=== PATIENT | male | born 1980 | race Caucasian/White ===

== ENCOUNTER 2023-01-25 21:17 | Emergency (ER) | payer SELFPAY ==
[2023-01-25 21:18] VITALS: BP 140/120; PULSE 117; RESP 15; TEMP 36.5; O2SAT 97; BMI 28.3
--- NOTE | 2023-01-25 22:19 | EX.ED.DYSGE1 ---
HPI History of Present Illness Chief Complaint: Itching Narrative Narrative: 42-year-old male was stung by a bee yesterday on his left ankle. He states he does not have anaphylaxis to bees. He is never had a reaction like this before. Patient states his leg is slowly been swelling. He tried some Benadryl today but it did not really help. He notices a little blister on the back of his left ankle. No systemic signs or symptoms. PFSH PFSH Home Medications NK 01/25/23 [History Last Taken Unknown] prednisone 50 mg tablet 50 mg PO DAILY #2 tabs 01/25/23 [Rx Last Taken Unknown] Allergy/AdvReac Type Severity Reaction Status Date / Time bee venom protein (honey bee) Allergy Mild Rash Verified 01/25/23 21:23 Surgical History History of spinal surgery Social History Smoking Status: Never smoker ROS ROS ED Constitutional Constitutional ED: Denies chills, fever(s) or sweats Eyes Eyes: Denies blurry vision or change in vision ENT ENT ED: Denies ear pain or sore throat Cardiovascular Cardiovascular: Denies chest pain, palpitations or racing heartbeat Respiratory/Chest Respiratory/Chest: Denies cough, dyspnea or sputum Gastrointestinal Gastrointestinal: Denies abdominal pain, constipation, diarrhea, nausea or vomiting Genitourinary Genitourinary ED: Denies dysuria, hematuria or urinary frequency Musculoskeletal Musculoskeletal: Denies arthralgias, myalgias or neck pain Integumentary Reports rash; Denies abscess or Abrasions Neurologic Neurologic: Denies headache(s), paresthesias or weakness Psychiatric Psychiatric: Denies anxiety, depression, suicidal ideation or suicidal thoughts Endocrine Endocrinology: Denies polydipsia or polyuria EXAM Physical Exam Const Vital Signs: 01/25/23 21:18 01/25/23 22:44 Temperature 97.7 F L Temperature Source Temporal Pulse Rate 117 H 97 Respiratory Rate 15 Blood Pressure 140/120 H Blood Pressure Mean 126 Pulse Ox 97 97 Oxygen Delivery Method Room Air Positive well nourished General Appearance ED: NAD HEENT Reports moist mucous membranes Eyes PERRL and EOMs intact bilaterally Neck no lymphadenopathy Chest Wall inspection of chest normal and palpation of chest normal Resp normal respiratory effort and clear to auscultation bilaterally Auscultation: Negative for rales, rhonchi or wheezes Cardio regular rate and regular rhythm Neuro oriented x3 and CN's II-XII intact bilaterally Sensorium / Orientation: alert Motor Exam: strength 5/5 throughout Psych mental status grossly normal Skin Skin Narrative: Erythema and edema noted over the left lateral ankle and somewhat into the left distal calf. No crepitance, significant increased warmth, cellulitic change. There is a small blister which is fluid-filled and the fluid is clear. Its about 1 cm wide. MDM MDM MDM Narrative Medical decision making narrative: Patient having localized reaction to bee sting yesterday. Is been getting worse so I did give him some prednisone. He will continue Benadryl at home. I did recommend he elevate the leg and use ice and compression as well. He can also soak the foot. I recommend that he did not break the blister and to keep his leg clean and dry. Patient amenable to this. He is given 2 days of prednisone. Discharged stable condition. Impression: 1. Bee sting 2. Localized allergic reaction Discharge Plan Triage Chief Complaint: Itching Other Complaint: Bite ED Provider: Mando Maria Dx/Rx/DC Orders Instructions: ED BEE STING General Allergic Rxn Prescriptions: New prednisone 50 mg tablet 50 mg PO DAILY Qty: 2 0RF No Action NK Primary Care Provider: Care Physician,No Primary Referrals: Darrell Victor MD [Med Staff - Active Staff] - 3-5 Days Care Physician,No Primary [Primary Care Provider] - Disposition Disposition: Home, Self Care Discharge Date/Time: 01/25/23 22:44
[2023-01-25] MEDS: predniSONE 20 MG Tablet 60 MG PO (22:40)
[2023-01-25 22:44] VITALS: PULSE 97; O2SAT 97
== END 2023-01-25 22:44 | disposition home or self-care (01) ==
PROVIDERS: Emergency Provider Student in an Organized Health Care Education/Training Program; Visit Provider Student in an Organized Health Care Education/Training Program
DX: T63.441A Toxic effect of venom of bees, accidental (unintentional), initial encounter (principal); L29.8 Other pruritus
CPT/HCPCS: 99283

== ENCOUNTER 2024-08-24 23:02 | Emergency (ER) | payer SELFPAY ==
[2024-08-24 23:03] VITALS: BP 161/107; PULSE 83; RESP 16; TEMP 36.5; O2SAT 96; BMI 28.5
--- NOTE | 2024-08-24 23:23 | EX.ED.VIS.UR ---
HPI HPI - URI History of Present Illness Chief Complaint: Cold Sx Informant: patient Onset/Context/Timing Onset: Days (3) Timing: Continuous Quality: Malaise, aching Location: All over Current Severity: Moderate Maximum Severity: Moderate Relieved by: NSAIDs Narrative Narrative: Healthy 43-year-old male mainly looking for a work note as well as evaluation for his illness. Sick for the third day now, with cough, myalgias, subjective fevers and chills and sweats, and diarrhea. Also today he states he lost sensation of taste. He has been vaccinated against COVID in the past, no influenza shot this year. Multiple sick contacts at work, he missed 3 days of work including today. ROS ROS ED Constitutional Constitutional ED: Reports body ache(s), chills, fatigue, fever(s), malaise and subjective; Denies headache(s) Eyes Eyes: Denies change in vision or diplopia ENT ENT ED: Reports ear pain left, rhinorrhea and sore throat Cardiovascular Cardiovascular: Denies chest pain or palpitations Respiratory/Chest Respiratory/Chest: Reports cough and sputum; Denies dyspnea or hemoptysis Gastrointestinal Gastrointestinal: Reports diarrhea; Denies abdominal pain, nausea or vomiting Genitourinary Genitourinary ED: Denies dysuria or hematuria Musculoskeletal Musculoskeletal: Denies back pain or neck pain Integumentary Denies abscess or rash Neurologic Neurologic: Denies headache(s), paresthesias or weakness Psychiatric Psychiatric: Denies anxiety or suicidal thoughts PFSH PFS Home Medications ?Medication ?Instructions ?Recorded ?Last Taken ?Type NK 01/25/23 Unknown History prednisone 50 mg tablet 50 mg PO DAILY #2 tabs 01/25/23 Unknown Rx Allergy/AdvReac Type Severity Reaction Status Date / Time bee venom protein (honey bee) Allergy Mild Rash Verified 08/24/24 23:03 Surgical History History of spinal surgery Social History Smoking Status: Never smoker EXAM Physical Exam Const Vital Signs: 08/24/24 23:03 Temperature 97.7 F L Temperature Source Oral Pulse Rate 83 Respiratory Rate 16 Blood Pressure 161/107 H Blood Pressure Mean 125 Pulse Ox 96 Oxygen Delivery Method Room Air Positive well nourished and well developed Constitutional Narrative: well-appearing, no distress General Appearance ED: well developed and NAD HEENT Reports moist mucous membranes HEENT Narrative: TMs normal bilaterally although right mostly occluded by cerumen normocephalic and atraumatic Face and Sinus: Negative for sinus tenderness Throat: posterior oropharynx normal Eyes PERRL and EOMs intact bilaterally Neck full ROM, supple and no meningeal signs Resp normal respiratory effort and clear to auscultation bilaterally Cardio regular rate, regular rhythm and no murmurs Rate: Negative for tachycardic GI non-tender and non-distended Auscultation: normoactive bowel sounds Palpation: soft Back/Spine no CVA tenderness General Back: other FROM Extremity normal to inspection and no calf tenderness General Extremety ED: Negative for edema, pulses abnormal or tenderness General Extremity: Negative for edema or pulses abnormal Neuro oriented x3, CN's II-XII intact bilaterally and no sensory deficits noted Neuro Narrative: Normal gait Sensorium / Orientation: awake and alert Motor Exam: strength 5/5 throughout Skin no rashes or lesions noted and no wounds MDM MDM MDM Narrative Medical decision making narrative: Given prevalence of influenza A in the community right now, his symptoms are all compatible with that and I think that is probably what he has. Also possibility of COVID given the loss of taste and smell. I offered to swab but he declines and does not necessarily want a diagnostic if he is okay otherwise. His oxygenation is excellent, and his exam is benign. He is drinking fluids without nausea or abdominal pain his abdomen is benign. Do not think he needs any other testing right now. He was given a work note and advised to take NSAIDs as needed for fevers, chills, aches and pains, and to stay hydrated and take some Imodium for the diarrhea as needed. He is concerned about food poisoning, is not having any hematochezia or suspicious food intake such as undercooked meats or raw fish, or travel out of the area recently. I think that is less likely. Discharge Plan Triage Chief Complaint: Cold Sx ED Provider: Bear Nieves Dx/Rx/DC Orders Clinical Impression: Influenza-like illness, Elevated blood pressure reading Instructions: ED Influenza (Adult) Prescriptions: No Action NK prednisone 50 mg tablet 50 mg PO DAILY Qty: 2 0RF Stand Alone Forms: ED Work / School Excuse Primary Care Provider: Care Physician,No Primary Referrals: Cheko Batres [facility] [employer] [facility] - (follow up when you are feeling better to have blood pressure rechecked - 161/107 in ED today) Print Language: Slovak Disposition Disposition: Home, Self Care
== END 2024-08-24 23:43 | disposition home or self-care (01) ==
LOC: ED 23:28
PROVIDERS: Emergency Provider Emergency Medicine; Visit Provider Emergency Medicine
DX: Z02.79 Encounter for issue of other medical certificate (principal); R05.1 Acute cough; R50.9 Fever, unspecified; R19.7 Diarrhea, unspecified; R03.0 Elevated blood-pressure reading, without diagnosis of hypertension
CPT/HCPCS: 99282